=== PATIENT | female | born 1960 | race Caucasian/White ===

== ENCOUNTER → 2017-03-28 | Outpatient (CLI) | payer OTHER | END | disposition home or self-care (01) | LOC: CFH 12:44 | PROVIDERS: ATTEND Family Medicine | DX: R60.0 Localized edema (principal) ==

== ENCOUNTER → 2018-01-07 | Outpatient (CLI) | payer OTHER ==
[~2018-01-07] MED LIST: No meds per pt.
[2018-01-07 09:28] LABS: BASOPHILS # (AUTO) 0.03 x10^3/uL (0-0.1); BASOPHILS % (AUTO) 1 % (0-1); EOSINOPHILS # (AUTO) 0.18 x10^3/uL (0-0.4); EOSINOPHILS % (AUTO) 3 % (1-7); LYMPHOCYTES # (AUTO) 1.22 x10^3/uL (1-3.4); LYMPHOCYTES % (AUTO) 20 % (22-44); MD NO; MEAN CORPUSCULAR HEMOGLOBIN 30.2 pg (27.0-34.8); MEAN CORPUSCULAR HGB CONC 33.5 g/dL (32.4-35.8); MEAN CORPUSCULAR VOLUME 90.2 fL (80-100); MONOCYTES # (AUTO) 0.41 x10^3/uL (0.2-0.8); MONOCYTES % (AUTO) 7 % (2-9); NEUTROPHILS # (AUTO) 4.41 x10^3/uL (1.8-6.8); NEUTROPHILS % (AUTO) 71 % (42-75); PLATELET COUNT 197 x10^3/uL (130-400); RED CELL DISTRIBUTION WIDTH 16.4 % (9.6-15.2)
[2018-01-07 09:36] LABS: ALBUMIN 3.8 g/dL (3.4-5.0); ANION GAP 5 mmol/L (5-15); CALCIUM 9.3 mg/dL (8.5-10.1); CHLORIDE 105 mmol/L (98-107); CHOLESTEROL, TOTAL 262 mg/dL (140-239); CREATININE 0.93 mg/dL (0.55-1.02)
[2018-01-07 10:03] LABS: % IRON SATURATION 16 % (20-55); ALANINE AMINOTRANSFERASE 26 U/L (12-78); ALKALINE PHOSPHATASE 67 U/L (45-117); BILIRUBIN,TOTAL 0.5 mg/dL (0.2-1.0); CHOL/HDL RATIO 4.2; FOLATE LEVEL 15.2 ng/mL (3.1-17.5); HDL CHOL % 24 % (28-40); HDL CHOLESTEROL (DIRECT) 63 mg/dL (40-60); IRON LEVEL 67 mcg/dL (50-170); LDL CHOLESTEROL,CALCULATED 159 mg/dL (54-169); LDL/HDL RATIO 2.5 (0.5-3.0); PREALBUMIN 24.9 mg/dL (20.0-40.0); TOTAL IRON BINDING CAPACITY 420 mcg/dL (250-450); TOTAL PROTEIN 7.8 g/dL (6.4-8.2); TRANSFERRIN 306 mg/dL (200-360); TRIGLYCERIDES 202 mg/dL (50-200); VLDL CHOLESTEROL 40 mg/dL (0-25)
== END ==
LOC: STAR 08:09
PROVIDERS: ATTEND Surgery
DX: Z01.818 Encounter for other preprocedural examination (principal); R94.31 Abnormal electrocardiogram [ECG] [EKG]; I10 Essential (primary) hypertension
CPT/HCPCS: 36415; 71046; 80053; 80061; 82306; 82607; 82728; 82746; 83540; 83550; 83970; 84134; 84425; 84466; 85025; 93005

== ENCOUNTER 2018-01-15 05:58 | Inpatient (IN) | payer OTHER ==
[~2018-01-15] VITALS: Ht 172.7 cm; Wt 155.7 kg
[2018-01-15] MEDS ORDERED: EPINEPHRINE 1 MG/ML, 1ML ONE (06:48)
[2018-01-15] MEDS ORDERED: BUPIVACAINE/PF 0.25% ONE (06:48)
[2018-01-15 06:55] VITALS: BP 168/101
[2018-01-15] MEDS ORDERED: LACTATED RINGERS 1,000 ML IV SCH (07:00)
[2018-01-15] MEDS ORDERED: SCOPOLAMINE PATCH, 1.5MG PATCH.TD72 TD ONE ×2 (07:07)
[2018-01-15] MEDS ORDERED: MIDAZOLAM 1 MG/ML, 2ML ONE (07:17)
[2018-01-15] MEDS ORDERED: FENTANYL PF 250 MCG/5ML ONE (07:17)
[2018-01-15] MEDS ORDERED: LIDOCAINE GEL 2%, 5ML ONE (07:18)
[2018-01-15] MEDS ORDERED: LIDOCAINE-MPF 2% ,5ML ONE ×2 (07:19)
[2018-01-15] MEDS ORDERED: GLYCOPYRROLATE 0.2MG/1ML, 5ML ONE (07:23)
[2018-01-15] MEDS ORDERED: NEOSTIGMINE 1 MG/ML, 10ML ONE (07:23)
[2018-01-15] MEDS ORDERED: CEFAZOLIN 1,000 MG ONE (07:23)
[2018-01-15] MEDS ORDERED: PROPOFOL 10 MG/ML, 20ML ONE (07:23)
[2018-01-15] MEDS ORDERED: DEXAMETHASONE 4 MG/ML, 1ML ONE (07:23)
[2018-01-15] MEDS ORDERED: SUCCINYLCHOLINE 20 MG/ML, 10ML ONE ×2 (07:23→07:24)
[2018-01-15] MEDS ORDERED: ROCURONIUM 10MG/ML,5ML ONE (07:23)
[2018-01-15] MEDS ORDERED: ONDANSETRON 2MG/ML, 2ML ONE (07:23)
[2018-01-15] MEDS ORDERED: EPHEDRINE 50 MG/ML, 1ML ONE ×3 (07:43→08:02)
[2018-01-15] MEDS ORDERED: PROMETHAZINE 25 MG/ML, 1ML IV PRN (09:00)
[2018-01-15] MEDS ORDERED: FENTANYL PF 100 MCG/2ML IV PRN (09:00)
[2018-01-15] MEDS ORDERED: hydrALAzine 20 MG/ML, 1ML IV PRN (09:00)
[2018-01-15] MEDS ORDERED: LABETALOL 5MG/ML, 20ML IV PRN (09:00)
[2018-01-15] MEDS ORDERED: ALBUTEROL/IPRATROPIUM 2.5MG/0.5MG, 3 ML NPPB PRN (09:00)
[2018-01-15] MEDS ORDERED: MIDAZOLAM 1 MG/ML, 2ML IV PRN (09:00)
[2018-01-15] MEDS ORDERED: ONDANSETRON 2MG/ML, 2ML IVPush PRN (09:00)
[2018-01-15] MEDS ORDERED: morphine SULFATE 10 MG/ML, 1ML IV PRN (09:00)
[2018-01-15] MEDS ORDERED: ALBUTEROL SULFATE 2.5 MG/3 ML NPPB PRN (09:00)
[2018-01-15] MEDS ORDERED: DIAZEPAM 5 MG/ML, 2ML IVPush PRN (09:00)
[2018-01-15] MEDS ORDERED: MEPERIDINE/PF 25MG/0.5ML IVPush PRN (09:00)
[2018-01-15] MEDS ORDERED: LABETALOL 5MG/ML, 20ML ONE (10:00)
[2018-01-15] MEDS ORDERED: DIPHENHYDRAMINE 25 MG CAPSULE PO PRN (12:30)
[2018-01-15] MEDS ORDERED: DIPHENHYDRAMINE 50 MG/ML, 1ML IV PRN (12:30)
[2018-01-15] MEDS ORDERED: LORazepam 2 MG/ML, 1ML IV PRN (12:30)
[2018-01-15] MEDS ORDERED: LACTATED RINGERS 500 ML IVBOLUS PRN (12:30)
[2018-01-15] MEDS ORDERED: ONDANSETRON 2MG/ML, 2ML IV PRN (12:30)
[2018-01-15] MEDS: POTASSIUM CHLORIDE 20 MEQ in LACTATED RINGERS 1,000 ML IV SCH ×2 (13:38→20:35)
[2018-01-15] MEDS: ENOXAPARIN 30 MG/0.3 ML SQ SCH (13:39)
[2018-01-15 14:16] VITALS: BP 163/88
[2018-01-15 22:47] VITALS: BP 104/65
[2018-01-16 00:01] VITALS: BP 114/70
[2018-01-16] MEDS: ENOXAPARIN 30 MG/0.3 ML SQ SCH ×2 (02:31→14:46)
[2018-01-16] MEDS: POTASSIUM CHLORIDE 20 MEQ in LACTATED RINGERS 1,000 ML IV SCH ×3 (02:31→17:51)
[2018-01-16 04:17] VITALS: BP 114/70
[2018-01-16 05:44] LABS: BASOPHILS # (AUTO) 0.02 x10^3/uL (0-0.1); BASOPHILS % (AUTO) 0 % (0-1); EOSINOPHILS # (AUTO) 0.01 x10^3/uL (0-0.4); EOSINOPHILS % (AUTO) 0 % (1-7); LYMPHOCYTES % (AUTO) 12 % (22-44); MD NO; MEAN CORPUSCULAR HGB CONC 33.2 g/dL (32.4-35.8); MEAN CORPUSCULAR VOLUME 90.4 fL (80-100); MEAN PLATELET VOLUME 9.1 fL (7.4-10.4); MONOCYTES # (AUTO) 0.96 x10^3/uL (0.2-0.8); MONOCYTES % (AUTO) 11 % (2-9); NEUTROPHILS # (AUTO) 6.48 x10^3/uL (1.8-6.8); NEUTROPHILS % (AUTO) 77 % (42-75); PLATELET COUNT 177 x10^3/uL (130-400); RED BLOOD COUNT 4.72 x10^6/uL (3.82-5.3)
[2018-01-16 05:53] LABS: ALBUMIN 3.1 g/dL (3.4-5.0); ANION GAP 5 mmol/L (5-15); CALCIUM 8.3 mg/dL (8.5-10.1); CHLORIDE 106 mmol/L (98-107)
[2018-01-16 05:55] LABS: CREATININE 0.82 mg/dL (0.55-1.02)
[2018-01-16 07:38] VITALS: BP 137/81
[2018-01-16 13:33] VITALS: BP 129/75
[2018-01-16] MEDS ORDERED: ONDA4TAB10 PO (16:10)
[2018-01-16] MEDS ORDERED: HYDR15SO3 PO (16:10)
[2018-01-16] MEDS: HYDROcodone/APAP 7.5-325MG/15ML UDC PO PRN (17:55)
[2018-01-16 19:31] VITALS: BP 134/78
[2018-01-17 00:09] VITALS: BP 134/82
[2018-01-17] MEDS: POTASSIUM CHLORIDE 20 MEQ in LACTATED RINGERS 1,000 ML IV SCH ×2 (01:59→11:20)
[2018-01-17] MEDS: ENOXAPARIN 30 MG/0.3 ML SQ SCH ×2 (01:59→16:09)
[2018-01-17 06:53] VITALS: BP 148/79
[2018-01-17] MEDS: HYDROcodone/APAP 7.5-325MG/15ML UDC PO PRN (10:49)
[2018-01-17 14:11] VITALS: BP 143/83
[2018-01-17 16:00] VITALS: BP 142/84
== END 2018-01-17 16:36 | disposition home or self-care (01) | DRG 621 ==
LOC: ORIP 05:58 → 4NOR 11:21 → DCLOUNGE 01-17 16:18
PROVIDERS: ADMIT Surgery; ATTEND Surgery
PROC: 0BQT4ZZ Repair Diaphragm, Percutaneous Endoscopic Approach (ICD-10-PCS; 2018-01-15)
PROC: 0DB64Z3 Excision of Stomach, Percutaneous Endoscopic Approach, Vertical (ICD-10-PCS; principal; 2018-01-15 07:30)
DX: E66.01 Morbid (severe) obesity due to excess calories (principal); E03.9 Hypothyroidism, unspecified; K44.9 Diaphragmatic hernia without obstruction or gangrene; Z68.43 Body mass index [BMI] 50.0-59.9, adult; I10 Essential (primary) hypertension; M54.9 Dorsalgia, unspecified
CPT/HCPCS: 36415; 71045; 80048; 82040; 85025; 88307; J0171; J0690; J1100; J1650; J2250; J2270; J2405; J2704; J2710; J3010; J3480; J3490; J0330; J7120

== ENCOUNTER 2018-02-17 13:50 | Inpatient (IN) | payer OTHER ==
[~2018-02-17] VITALS: Ht 172.7 cm; Wt 140.9 kg
[~2018-02-17 13:50] MED LIST changes: +HYDR15SO3 PO; +ONDA4TAB10 PO
[2018-02-17] MEDS ORDERED: PROMETHAZINE 25 MG/ML, 1ML ONE (14:40)
[2018-02-17] MEDS ORDERED: PROMETHAZINE 25 MG/ML, 1ML IM ONE (15:00)
[2018-02-17] MEDS ORDERED: SODIUM CHLORIDE FLUSH 10ML SYR IVF ONE (15:00)
[2018-02-17 15:26] LABS: ALBUMIN 3.6 g/dL (3.4-5.0); ANION GAP 14 mmol/L (5-15); CALCIUM 8.7 mg/dL (8.5-10.1); CHLORIDE 106 mmol/L (98-107)
[2018-02-17 15:31] LABS: ALANINE AMINOTRANSFERASE 30 U/L (12-78); ALKALINE PHOSPHATASE 60 U/L (45-117); BILIRUBIN,TOTAL 1.4 mg/dL (0.2-1.0); CREATININE 2.28 mg/dL (0.55-1.02); TROPONIN I 0.083 ng/mL (0.000-0.045)
[2018-02-17 15:42] LABS: MD YES
[2018-02-17 15:43] LABS: MEAN CORPUSCULAR VOLUME 90.9 fL (80-100); MEAN PLATELET VOLUME 10.8 fL (7.4-10.4); PLATELET COUNT 60 x10^3/uL (130-400); RED BLOOD COUNT 5.79 x10^6/uL (3.82-5.3); RED CELL DISTRIBUTION WIDTH 16.4 % (9.6-15.2)
[2018-02-17 15:51] LABS: BAND#(MANUAL) 0.54 x10^3/uL; BANDS%(MANUAL) 5 % (0-7); LYMPH#(MANUAL) 1.19 x10^3/uL (1-3.4); LYMPHS% (MANUAL) 11 % (22-44); SEG#(MANUAL) 8.32 x10^3/uL (1.8-6.8); SEGS% (MANUAL) 77 % (42-75)
[2018-02-17 15:52] LABS: <PLATELET ESTIMATE> DECREASED; MONOS#(MANUAL) 0.43 x10^3/uL (0.3-2.7); MONOS% (MANUAL) 4 % (2-9); REACTIVE LYMPHS # (MANUAL) 0.32 x10^3/uL (0-0); REACTIVE LYMPHS % (MANUAL) 3 % (0-0)
[2018-02-17 15:55] LABS: LARGE PLATELETS 1+; OVALOCYTES 1+
[2018-02-17] MEDS ORDERED: SODIUM CHLORIDE 0.9%, 500ML IVBOLUS ONE (16:30)
[2018-02-17] MEDS ORDERED: OMNIPAQUE 350 MG/ML, 100ML BOTTLE ONE (17:15)
[2018-02-17] MEDS ORDERED: HEPARIN 25,000 UNITS/500ML PMX 500 ML IV STA (17:18)
[2018-02-17] MEDS ORDERED: HEPARIN 25,000 UNITS/500ML PMX 500 ML ONE (17:33)
[2018-02-17] MEDS ORDERED: HEPARIN 5,000 UNITS/ML, 1ML ONE (17:53)
[2018-02-17] MEDS: HEPARIN 25,000 UNITS/500ML PMX 500 ML IV PRN (17:59)
[2018-02-17] MEDS ORDERED: HEPARIN 5,000 UNITS/ML, 1ML IV ONE (18:00)
[2018-02-17] MEDS ORDERED: ALTEPLASE IV ONE (18:30)
[2018-02-17] MEDS ORDERED: VISIPAQUE 270 MG/ML, 50ML BOTTLE ONE (19:00)
[2018-02-17] MEDS ORDERED: MIDAZOLAM 1 MG/ML, 5ML ONE (19:13)
[2018-02-17] MEDS ORDERED: FENTANYL PF 250 MCG/5ML ONE (19:13)
[2018-02-17] MEDS ORDERED: EPINEPHRINE SYRINGE 0.1 MG/ML, 10ML ONE (19:14)
[2018-02-17] MEDS ORDERED: EPINEPHRINE 2 MG in SODIUM CHLORIDE 0.9% 248 ML IV PRN (19:30)
[2018-02-17] MEDS ORDERED: ALTEPLASE 10 MG in SODIUM CHLORIDE 0.9% 90 ML IV SCH ×2 (19:30→23:00)
[2018-02-17] MEDS ORDERED: LIDOCAINE-MPF 1%, 2ML ONE (19:51)
[2018-02-17] MEDS: SODIUM CHLORIDE 0.9% 1,000 ML IV SCH ×2 (19:53→23:00)
[2018-02-17] MEDS ORDERED: ACETAMINOPHEN 325 MG TABLET PO PRN (20:00)
[2018-02-17 22:03] VITALS: BP 150/84
[2018-02-18] MEDS: ALTEPLASE 10 MG in SODIUM CHLORIDE 0.9% 90 ML IV SCH ×5 (04:20→23:00)
[2018-02-18 06:00] VITALS: BP 131/79
[2018-02-18 06:05] LABS: ALBUMIN 2.7 g/dL (3.4-5.0); ANION GAP 10 mmol/L (5-15); CALCIUM 7.6 mg/dL (8.5-10.1); CHLORIDE 109 mmol/L (98-107)
[2018-02-18 06:10] LABS: ALANINE AMINOTRANSFERASE 28 U/L (12-78); ALKALINE PHOSPHATASE 45 U/L (45-117); BILIRUBIN,TOTAL 1.5 mg/dL (0.2-1.0); CREATININE 1.68 mg/dL (0.55-1.02); TOTAL PROTEIN 5.2 g/dL (6.4-8.2)
[2018-02-18 06:30] LABS: BASOPHILS # (AUTO) 0.07 x10^3/uL (0-0.1); BASOPHILS % (AUTO) 1 % (0-1); EOSINOPHILS % (AUTO) 0 % (1-7); LYMPHOCYTES # (AUTO) 1.47 x10^3/uL (1-3.4); LYMPHOCYTES % (AUTO) 13 % (22-44); MD SCAN; MEAN CORPUSCULAR HEMOGLOBIN 30.2 pg (27.0-34.8); MEAN CORPUSCULAR HGB CONC 33.3 g/dL (32.4-35.8); MEAN CORPUSCULAR VOLUME 90.9 fL (80-100); MEAN PLATELET VOLUME 10.6 fL (7.4-10.4); MONOCYTES # (AUTO) 0.99 x10^3/uL (0.2-0.8); MONOCYTES % (AUTO) 9 % (2-9); NEUTROPHILS # (AUTO) 8.73 x10^3/uL (1.8-6.8); NEUTROPHILS % (AUTO) 78 % (42-75); PLATELET COUNT 55 x10^3/uL (130-400); RED BLOOD COUNT 4.39 x10^6/uL (3.82-5.3); RED CELL DISTRIBUTION WIDTH 16.4 % (9.6-15.2)
[2018-02-18 06:34] LABS: TROPONIN I 0.206 ng/mL (0.000-0.045)
[2018-02-18] MEDS: HEPARIN 5,000 UNITS/ML, 1ML IV PRN (06:37)
[2018-02-18] MEDS: SODIUM CHLORIDE 0.9% 1,000 ML IV SCH ×2 (09:13→20:27)
[2018-02-18] MEDS ORDERED: FENTANYL PF 100 MCG/2ML ONE (13:38)
[2018-02-18 13:39] LABS: TROPONIN I 0.135 ng/mL (0.000-0.045)
[2018-02-18] MEDS: FENTANYL PF 100 MCG/2ML IVPush PRN ×5 (13:44→21:51)
[2018-02-18] MEDS: HEPARIN 25,000 UNITS/500ML PMX 500 ML IV PRN (15:45)
[2018-02-18] MEDS ORDERED: ONDANSETRON ODT 4 MG ONE (16:12)
[2018-02-18] MEDS ORDERED: ALTEPLASE 10 MG in SODIUM CHLORIDE 0.9% 90 ML IV SCH (23:00)
[2018-02-19] MEDS: SODIUM CHLORIDE 0.9% 1,000 ML IV SCH ×3 (00:21→15:09)
[2018-02-19] MEDS: FENTANYL PF 100 MCG/2ML IVPush PRN ×11 (00:21→23:38)
[2018-02-19] MEDS: ALTEPLASE 10 MG in SODIUM CHLORIDE 0.9% 90 ML IV SCH ×3 (01:52→13:37)
[2018-02-19 06:26] LABS: MEAN CORPUSCULAR HEMOGLOBIN 30.4 pg (27.0-34.8); MEAN CORPUSCULAR HGB CONC 33.4 g/dL (32.4-35.8); MEAN PLATELET VOLUME 11.5 fL (7.4-10.4); PLATELET COUNT 88 x10^3/uL (130-400); RED BLOOD COUNT 2.87 x10^6/uL (3.82-5.3); RED CELL DISTRIBUTION WIDTH 15.8 % (9.6-15.2)
[2018-02-19 06:37] LABS: ANION GAP 9 mmol/L (5-15); CALCIUM 7.4 mg/dL (8.5-10.1); CHLORIDE 107 mmol/L (98-107); CREATININE 1.54 mg/dL (0.55-1.02)
[2018-02-19] MEDS: HEPARIN 5,000 UNITS/ML, 1ML IV PRN (06:44)
[2018-02-19 06:45] LABS: ANISOCYTOSIS 1+; BASOPHILS # (AUTO) 0.05 x10^3/uL (0-0.1); BASOPHILS % (AUTO) 0 % (0-1); EOSINOPHILS % (AUTO) 0 % (1-7); LYMPHOCYTES # (AUTO) 1.75 x10^3/uL (1-3.4); LYMPHOCYTES % (AUTO) 14 % (22-44); MD MORPH REVIEW ONLY; MONOCYTES # (AUTO) 1.15 x10^3/uL (0.2-0.8); MONOCYTES % (AUTO) 9 % (2-9); NEUTROPHILS # (AUTO) 9.28 x10^3/uL (1.8-6.8); NEUTROPHILS % (AUTO) 76 % (42-75); POLYCHROMASIA 1+
[2018-02-19 06:46] LABS: <PLATELET ESTIMATE> DECREASED; LARGE PLATELETS 1+; OVALOCYTES 1+
[2018-02-19] MEDS: HEPARIN 25,000 UNITS/500ML PMX 500 ML IV PRN (10:12)
[2018-02-19] MEDS: ONDANSETRON ODT 4 MG PO PRN ×2 (13:22→20:36)
[2018-02-20] MEDS: SODIUM CHLORIDE 0.9% 1,000 ML IV SCH ×2 (03:58→14:33)
[2018-02-20] MEDS: HEPARIN 25,000 UNITS/500ML PMX 500 ML IV PRN ×2 (04:01→21:08)
[2018-02-20] MEDS: FENTANYL PF 100 MCG/2ML IVPush PRN ×5 (04:16→22:43)
[2018-02-20 11:13] VITALS: BP 124/65
[2018-02-20 14:31] VITALS: BP 127/53
[2018-02-20 18:44] VITALS: BP 103/67
[2018-02-21 01:38] VITALS: BP 116/81
[2018-02-21] MEDS: FENTANYL PF 100 MCG/2ML IVPush PRN (01:52)
[2018-02-21] MEDS: ACETAMINOPHEN 650 MG/20.3 ML UDC PO PRN ×2 (10:17→22:28)
[2018-02-21 10:19] VITALS: BP 98/56
[2018-02-21 12:51] VITALS: BP 92/51
[2018-02-21] MEDS: HEPARIN 25,000 UNITS/500ML PMX 500 ML IV PRN (14:21)
[2018-02-21 15:42] LABS: FOLATE LEVEL 12.9 ng/mL (3.1-17.5)
[2018-02-21 19:03] VITALS: BP 104/67
[2018-02-22] VITALS (11 sets, daily range): BP systolic 98–123; BP diastolic 48–78
[2018-02-22] MEDS: FENTANYL PF 100 MCG/2ML IVPush PRN (04:56)
[2018-02-22 06:15] LABS: ANION GAP 5 mmol/L (5-15); CALCIUM 7.8 mg/dL (8.5-10.1); CHLORIDE 106 mmol/L (98-107)
[2018-02-22 06:16] LABS: CREATININE 0.57 mg/dL (0.55-1.02)
[2018-02-22] MEDS: HEPARIN 25,000 UNITS/500ML PMX 500 ML IV PRN (06:41)
[2018-02-22 08:08] LABS: MEAN CORPUSCULAR HEMOGLOBIN 30.7 pg (27.0-34.8); MEAN CORPUSCULAR HGB CONC 32.8 g/dL (32.4-35.8); MEAN CORPUSCULAR VOLUME 93.5 fL (80-100); MEAN PLATELET VOLUME 9.8 fL (7.4-10.4); PLATELET COUNT 133 x10^3/uL (130-400); RED BLOOD COUNT 1.53 x10^6/uL (3.82-5.3); RED CELL DISTRIBUTION WIDTH 18.1 % (9.6-15.2)
[2018-02-22 08:20] LABS: MD YES
[2018-02-22 08:24] LABS: <PLATELET ESTIMATE> ADEQUATE; ANISOCYTOSIS 1+; BAND#(MANUAL) 0.43 x10^3/uL; BANDS%(MANUAL) 6 % (0-7); LARGE PLATELETS 1+; LYMPH#(MANUAL) 1.66 x10^3/uL (1-3.4); LYMPHS% (MANUAL) 23 % (22-44); METAMYELOCYTES# (MANUAL) 0.29 x10^3/uL (0-0); METAMYELOCYTES% (MANUAL) 4 % (0-1); MONOS#(MANUAL) 0.36 x10^3/uL (0.3-2.7); MONOS% (MANUAL) 5 % (2-9); NRBC % (MANUAL) 1 % (0-1); OVALOCYTES 1+; POLYCHROMASIA 1+; SEG#(MANUAL) 4.46 x10^3/uL (1.8-6.8); SEGS% (MANUAL) 62 % (42-75)
[2018-02-22] MEDS ORDERED: POTASSIUM CHLORIDE 20 MEQ TAB.ER.PRT PO ONE (08:30)
[2018-02-22] MEDS ORDERED: IRON DEXTRAN IV PER PHARMACY IV PRN (08:30)
[2018-02-22] MEDS: SODIUM CHLORIDE 0.9% 1,000 ML IV SCH ×2 (09:16→20:50)
[2018-02-22] MEDS: IRON SUCROSE COMPLEX 100MG/5ML IV SCH (09:16)
[2018-02-22] MEDS: POLYETHYLENE GLYCOL 17 GM PACKET PO PRN (20:49)
[2018-02-22 21:38] LABS: MEAN CORPUSCULAR HEMOGLOBIN 31.5 pg (27.0-34.8); MEAN CORPUSCULAR VOLUME 92.7 fL (80-100); MEAN PLATELET VOLUME 9.5 fL (7.4-10.4); PLATELET COUNT 79 x10^3/uL (130-400); RED BLOOD COUNT 2.47 x10^6/uL (3.82-5.3); RED CELL DISTRIBUTION WIDTH 15.6 % (9.6-15.2)
[2018-02-22 21:41] LABS: MD YES
[2018-02-22 21:44] LABS: BAND#(MANUAL) 0.28 x10^3/uL; BANDS%(MANUAL) 4 % (0-7); EOS#(MANUAL) 0.43 x10^3/uL (0.0-0.4); EOS% (MANUAL) 6 % (1-7); LYMPH#(MANUAL) 0.92 x10^3/uL (1-3.4); LYMPHS% (MANUAL) 13 % (22-44); MONOS% (MANUAL) 7 % (2-9); NRBC % (MANUAL) 4 % (0-1); SEG#(MANUAL) 4.97 x10^3/uL (1.8-6.8); SEGS% (MANUAL) 70 % (42-75)
[2018-02-22 21:45] LABS: ANISOCYTOSIS 1+; POLYCHROMASIA 1+
[2018-02-22 21:46] LABS: <PLATELET ESTIMATE> DECREASED; LARGE PLATELETS 1+
[2018-02-23 01:34] VITALS: BP 93/57
[2018-02-23 05:35] LABS: ANION GAP 7 mmol/L (5-15); CALCIUM 7.5 mg/dL (8.5-10.1); CHLORIDE 104 mmol/L (98-107); CREATININE 0.47 mg/dL (0.55-1.02)
[2018-02-23 07:02] VITALS: BP 103/62
[2018-02-23 08:19] LABS: MD YES; MEAN CORPUSCULAR HEMOGLOBIN 30.8 pg (27.0-34.8); MEAN CORPUSCULAR HGB CONC 33.4 g/dL (32.4-35.8); MEAN CORPUSCULAR VOLUME 92.2 fL (80-100); MEAN PLATELET VOLUME 9.8 fL (7.4-10.4); PLATELET COUNT 77 x10^3/uL (130-400); RED BLOOD COUNT 2.49 x10^6/uL (3.82-5.3); RED CELL DISTRIBUTION WIDTH 16.8 % (9.6-15.2)
[2018-02-23 08:23] LABS: BAND#(MANUAL) 0.28 x10^3/uL; BANDS%(MANUAL) 4 % (0-7); EOS#(MANUAL) 0.07 x10^3/uL (0.0-0.4); EOS% (MANUAL) 1 % (1-7); LYMPH#(MANUAL) 0.91 x10^3/uL (1-3.4); LYMPHS% (MANUAL) 13 % (22-44); MONOS#(MANUAL) 0.84 x10^3/uL (0.3-2.7); MONOS% (MANUAL) 12 % (2-9); NRBC % (MANUAL) 2 % (0-1); SEGS% (MANUAL) 70 % (42-75)
[2018-02-23 08:24] LABS: <PLATELET ESTIMATE> DECREASED; ANISOCYTOSIS 1+; LARGE PLATELETS 1+; POLYCHROMASIA 1+
[2018-02-23] MEDS: IRON SUCROSE COMPLEX 100MG/5ML IV SCH (10:33)
[2018-02-23 12:56] VITALS: BP 93/61
[2018-02-23] MEDS ORDERED: POTASSIUM CHLORIDE 20 MEQ TAB.ER.PRT PO ONE (13:30)
[2018-02-23] MEDS: SODIUM CHLORIDE 0.9% 1,000 ML IV SCH (15:30)
[2018-02-23 18:36] VITALS: BP 112/75
[2018-02-23] MEDS ORDERED: MAGNESIUM CITRATE 300ML ORAL SOL PO PRN (19:00)
[2018-02-23] MEDS: POLYETHYLENE GLYCOL 17 GM PACKET PO PRN (20:33)
[2018-02-23] MEDS: ACETAMINOPHEN 650 MG/20.3 ML UDC PO PRN (23:04)
[2018-02-24 00:30] VITALS: BP 92/55
[2018-02-24] MEDS: SODIUM CHLORIDE 0.9% 1,000 ML IV SCH (01:20)
[2018-02-24 05:10] LABS: ANION GAP 8 mmol/L (5-15); CALCIUM 7.7 mg/dL (8.5-10.1); CHLORIDE 103 mmol/L (98-107); CREATININE 0.46 mg/dL (0.55-1.02)
[2018-02-24 06:48] VITALS: BP 101/67
[2018-02-24 06:59] LABS: MEAN CORPUSCULAR HEMOGLOBIN 31.5 pg (27.0-34.8); MEAN CORPUSCULAR HGB CONC 33.5 g/dL (32.4-35.8); MEAN CORPUSCULAR VOLUME 94.1 fL (80-100); MEAN PLATELET VOLUME 9.5 fL (7.4-10.4); PLATELET COUNT 108 x10^3/uL (130-400); RED BLOOD COUNT 2.48 x10^6/uL (3.82-5.3); RED CELL DISTRIBUTION WIDTH 16.5 % (9.6-15.2)
[2018-02-24 07:13] LABS: BASOPHILS # (AUTO) 0.03 x10^3/uL (0-0.1); BASOPHILS % (AUTO) 0 % (0-1); EOSINOPHILS # (AUTO) 0.28 x10^3/uL (0-0.4); EOSINOPHILS % (AUTO) 4 % (1-7); LYMPHOCYTES # (AUTO) 0.95 x10^3/uL (1-3.4); LYMPHOCYTES % (AUTO) 13 % (22-44); MD SCAN; MONOCYTES # (AUTO) 0.36 x10^3/uL (0.2-0.8); MONOCYTES % (AUTO) 5 % (2-9); NEUTROPHILS # (AUTO) 5.56 x10^3/uL (1.8-6.8); NEUTROPHILS % (AUTO) 77 % (42-75)
[2018-02-24] MEDS: IRON SUCROSE COMPLEX 100MG/5ML IV SCH ×2 (10:29→15:09)
[2018-02-24] MEDS: NS + 40MEQ KCL 1,000 ML IV SCH ×2 (10:30→15:08)
[2018-02-24] MEDS ORDERED: MIDAZOLAM 1 MG/ML, 5ML ONE ×2 (10:35)
[2018-02-24] MEDS ORDERED: FENTANYL PF 100 MCG/2ML ONE (10:36)
[2018-02-24] MEDS ORDERED: FLUMAZENIL 0.1 MG/1 ML, 5ML ONE (10:36)
[2018-02-24] MEDS ORDERED: NALOXONE 1 MG/ML, 2ML ONE (10:36)
[2018-02-24] MEDS: ACETAMINOPHEN 650 MG/20.3 ML UDC PO PRN (12:55)
[2018-02-24 13:18] VITALS: BP 133/55
[2018-02-24] MEDS ORDERED: POTASSIUM CHLORIDE 20 MEQ PACKET PO ONE (15:30)
[2018-02-24 21:43] VITALS: BP 122/65
[2018-02-25 00:35] VITALS: BP 113/67
[2018-02-25] MEDS: NS + 40MEQ KCL 1,000 ML IV SCH (00:37)
[2018-02-25 05:12] LABS: ANION GAP 5 mmol/L (5-15); CALCIUM 7.4 mg/dL (8.5-10.1); CHLORIDE 106 mmol/L (98-107)
[2018-02-25 07:33] VITALS: BP 116/70
[2018-02-25] MEDS ORDERED: POTASSIUM CHLORIDE 20 MEQ TAB.ER.PRT PO ONE (08:30)
[2018-02-25] MEDS ORDERED: BISACODYL 10 MG SUPP PR SCH (09:00)
[2018-02-25] MEDS: IRON SUCROSE COMPLEX 100MG/5ML IV SCH (09:04)
[2018-02-25] MEDS ORDERED: FERR324T5 PO (10:38)
[2018-02-25 14:05] VITALS: BP 100/57
== END 2018-02-25 15:15 | disposition home or self-care (01) | DRG 166 ==
LOC: ED 15:57 → EDIP 17:19 → CCU 20:20 → ICU 02-18 18:03 → CCU 02-19 03:21 → 5SO 02-20 11:50 → DCLOUNGE 02-25 15:00
PROVIDERS: ADMIT Hospitalist; ATTEND Hospitalist
PROC: B5181ZA Fluoroscopy of Superior Vena Cava using Low Osmolar Contrast, Guidance (ICD-10-PCS; 2018-02-17)
PROC: B548ZZA Ultrasonography of Superior Vena Cava, Guidance (ICD-10-PCS; 2018-02-17)
PROC: 3E0L3GC Introduction of Other Therapeutic Substance into Pleural Cavity, Percutaneous Approach (ICD-10-PCS; 2018-02-17)
PROC: 02HV33Z Insertion of Infusion Device into Superior Vena Cava, Percutaneous Approach (ICD-10-PCS; principal; 2018-02-17 19:00)
PROC: 30233N1 Transfusion of Nonautologous Red Blood Cells into Peripheral Vein, Percutaneous Approach (ICD-10-PCS; 2018-02-22)
PROC: 06H03DZ Insertion of Intraluminal Device into Inferior Vena Cava, Percutaneous Approach (ICD-10-PCS; 2018-02-24)
DX: I26.99 Other pulmonary embolism without acute cor pulmonale (principal); J96.01 Acute respiratory failure with hypoxia; N17.0 Acute kidney failure with tubular necrosis; E66.01 Morbid (severe) obesity due to excess calories; D62 Acute posthemorrhagic anemia; D69.6 Thrombocytopenia, unspecified; E83.42 Hypomagnesemia; I82.401 Acute embolism and thrombosis of unspecified deep veins of right lower extremity; Z68.42 Body mass index [BMI] 45.0-49.9, adult; D50.9 Iron deficiency anemia, unspecified; I50.82 Biventricular heart failure; E86.9 Volume depletion, unspecified; E03.9 Hypothyroidism, unspecified; E87.6 Hypokalemia; G47.00 Insomnia, unspecified; G89.29 Other chronic pain; M54.9 Dorsalgia, unspecified; R31.9 Hematuria, unspecified; I10 Essential (primary) hypertension; S40.022A Contusion of left upper arm, initial encounter; M19.90 Unspecified osteoarthritis, unspecified site; K59.00 Constipation, unspecified; K44.9 Diaphragmatic hernia without obstruction or gangrene; I27.81 Cor pulmonale (chronic); K76.9 Liver disease, unspecified; Z98.84 Bariatric surgery status; Z87.891 Personal history of nicotine dependence; Z88.6 Allergy status to analgesic agent; Z90.3 Acquired absence of stomach [part of]; X58.XXXA Exposure to other specified factors, initial encounter; Y93.89 Activity, other specified; Y92.89 Other specified places as the place of occurrence of the external cause; Y99.8 Other external cause status
CPT/HCPCS: 36415; 36569; 36600; 37191; 37211; 37214; 71045; 71275; 74176; 75743; 76937; 77001; 80048; 80053; 82330; 82607; 82746; 82803; 83540; 83550; 83605; 83735; 84100; 84484; 85025; 85379; 85520; 86850; 86900; 86923; 87040; 87081; 93005; 93306; 93931; 93970; 96372; 96374; 99291; C1880; J1644; J1756; J2250; J2550; J2997; J3010; J3490; Q0162; Q9966; Q9967; C1751; C1769; J2310; J3480; J7030; J7040; P9016